=== PATIENT | male | born 1965 | race Hispanic/Latino ===

== ENCOUNTER 2024-08-11 22:27 | Emergency (ER) | payer OTHER, SELFPAY ==
[2024-08-11] MEDS ORDERED: Bacitracin 1 PK ONE (23:22)
== END 2024-08-12 00:15 | disposition home or self-care (01) ==
LOC: ERS 22:27
DX: S01.01XA Laceration without foreign body of scalp, initial encounter (principal); S01.81XA Laceration without foreign body of other part of head, initial encounter; I10 Essential (primary) hypertension; E11.9 Type 2 diabetes mellitus without complications; Z79.899 Other long term (current) drug therapy; W22.8XXA Striking against or struck by other objects, initial encounter
CPT/HCPCS: 99282